=== PATIENT | male | born 1970 | race Caucasian/White ===

== ENCOUNTER 2016-12-29 05:23 | Inpatient (IN) | payer OTHER ==
[2016-12-29] VITALS (16 sets, daily range): BP systolic 89–146; BP diastolic 50–98
[~2016-12-29] VITALS: Ht 167.6 cm; Wt 64.2 kg
[2016-12-29 05:40] LABS: BASOPHIL COUNT 0.1 K/uL (0-0.1); EOSINOPHIL (%) 2.6 % (0-5); EOSINOPHIL COUNT 0.5 K/uL (0-0.3); HEMATOCRIT 44.1 % (38.0-50.0); IMMATURE GRANULOCYTE (%) 0.7 % (0.0-0.7); IMMATURE GRANULOCYTE COUNT 0.1 K/uL; INSTRUMENT ABS NEUTROPHIL CT 10.7 K/uL; LYMPHOCYTE COUNT 5.8 K/uL (1.0-2.8); MCV 91.1 FL (86-99); MEAN PLAT.VOLUME 9.2 uM^3 (9.0-12.4); MONOCYTE (%) 6.2 % (3-12); MONOCYTE COUNT 1.1 K/uL (0-0.8); NEUTROPHIL (%) 58.6 % (45-76); NEUTROPHIL COUNT 10.7 K/uL (1.8-6.4); PLATELET COUNT 279 K/uL (156-360); RBC DIS.WIDTH-CV 12.8 % (11.8-14.6); RBC DIS.WIDTH-SD 43.1 % (39-53); RED BLOOD COUNT 4.84 M/uL (4.00-5.50); WHITE BLOOD COUNT 18.2 K/uL (4.1-10.2)
[2016-12-29 05:43] LABS: PROTHROMBIN TIME 10.5 SEC (10.2-12.9)
[2016-12-29 05:45] LABS: AMYLASE 64 IU/L (1-118); CHLORIDE 110 mEq/L (99-109); POTASSIUM 3.6 mEq/L (3.7-5.4); SODIUM 143 mEq/L (136-147)
[2016-12-29 05:46] LABS: PTT 24.6 SEC (25-37)
[2016-12-29 05:47] LABS: GLUCOSE 139 mg/dL (70-99)
[2016-12-29 05:48] LABS: ANION GAP 13 MEQ/L (2-14)
[2016-12-29 05:50] LABS: SERUM ETHYL ALCOHOL < 10 mg/dL
[2016-12-29 05:51] LABS: GFR ESTIMATE (CALCULATED) > 59 mL/min/
[2016-12-29] MEDS ORDERED: HIV MEDICATION (05:51)
[2016-12-29 05:52] LABS: UREA NITROGEN (BUN) 13 mg/dL (9-23)
[2016-12-29 05:54] LABS: LIPASE 40 U/L (1.0-51.0)
[2016-12-29 05:58] LABS: TROP-I INTERPRETATION NEGATIVE; TROPONIN-I < 0.01 ng/mL (0.0-0.30)
[2016-12-29 08:37] LABS: METH RESISTANT S AUREUS PCR NEGATIVE (NEGATIVE)
[2016-12-29 08:40] LABS: PROBE CHECK PASS; SPECIMEN PROCESSING CONTROL PASS
[2016-12-29] MEDS ORDERED: ATRIPLA TABLET1 EACH PO (10:41)
[2016-12-29 13:11] LABS: HDL CHOLESTEROL 33 MG/DL (Desirable>=40); LDL CHOLESTEROL 52 mg/dL (Desirable<100); NON-HDL CHOLESTEROL 86 mg/dL (Desirable<160); TOTAL CHOLESTEROL 119 mg/dL (Desirable<200); TRIGLYCERIDES 170 MG/DL (Normal: <150)
[2016-12-29 13:31] LABS: TROP-I INTERPRETATION POSITIVE; TROPONIN-I 13.58 ng/mL (0.0-0.30)
[2016-12-29 14:26] LABS: CREATINE KINASE 419 IU/L (1-294); TOTAL CK 419 IU/L (1-294)
[2016-12-29 14:30] LABS: CK-MB 66.6 ng/mL (0.0-4.9)
[2016-12-29 18:32] LABS: CREATINE KINASE 444 IU/L (1-294); TOTAL CK 444 IU/L (1-294)
[2016-12-29 18:38] LABS: TROP-I INTERPRETATION POSITIVE
[2016-12-29 19:37] LABS: CK-MB 56.9 ng/mL (0.0-4.9)
[2016-12-30] VITALS (16 sets, daily range): BP systolic 115–143; BP diastolic 61–100
[2016-12-30 00:54] LABS: CREATINE KINASE 493 IU/L (1-294); TOTAL CK 493 IU/L (1-294)
[2016-12-30 00:58] LABS: TROP-I INTERPRETATION POSITIVE
[2016-12-30 01:01] LABS: TROPONIN-I 13.07 ng/mL (0.0-0.30)
[2016-12-30 01:12] LABS: CK-MB 45.6 ng/mL (0.0-4.9)
[2016-12-30 05:55] LABS: BASOPHIL COUNT 0.1 K/uL (0-0.1); EOSINOPHIL (%) 1.9 % (0-5); EOSINOPHIL COUNT 0.3 K/uL (0-0.3); HEMATOCRIT 41.4 % (38.0-50.0); IMMATURE GRANULOCYTE (%) 0.4 % (0.0-0.7); IMMATURE GRANULOCYTE COUNT 0.1 K/uL; INSTRUMENT ABS NEUTROPHIL CT 9.6 K/uL; LYMPHOCYTE COUNT 3.7 K/uL (1.0-2.8); MCH 31.4 PG (29.0-34.0); MCHC 34.1 G/DL (30.0-36.0); MCV 92.2 FL (86-99); MEAN PLAT.VOLUME 9.6 uM^3 (9.0-12.4); MONOCYTE (%) 8.4 % (3-12); MONOCYTE COUNT 1.3 K/uL (0-0.8); NEUTROPHIL (%) 64.5 % (45-76); NEUTROPHIL COUNT 9.6 K/uL (1.8-6.4); PLATELET COUNT 222 K/uL (156-360); RBC DIS.WIDTH-CV 13.2 % (11.8-14.6); RBC DIS.WIDTH-SD 44.3 % (39-53); RED BLOOD COUNT 4.49 M/uL (4.00-5.50)
[2016-12-30 06:15] LABS: ANION GAP 7 MEQ/L (2-14); CHLORIDE 108 MEQ/L (99-109); GFR ESTIMATE (CALCULATED) > 59 mL/min/; GLUCOSE 96 mg/dL (70-99); POTASSIUM 4.3 MEQ/L (3.7-5.4); SAMPLE HEMOLYSIS CHECK 0; SAMPLE ICTERIC CHECK 0; SAMPLE LIPEMIA CHECK 0; SODIUM 141 MEQ/L (136-147); UREA NITROGEN (BUN) 6 mg/dL (9-23)
[2016-12-30 06:39] LABS: TROP-I INTERPRETATION POSITIVE; TROPONIN-I 10.23 ng/mL (0.0-0.30)
[2016-12-30 06:53] LABS: Estimated Average Glucose 111 mg/dL (70-123); HEMOGLOBIN A1c (GLYCOHEMOGLOB) 5.5 % HGB (Below 5.7)
[2016-12-30] MEDS ORDERED: NICODERM CQ1 EAC1 TD (17:23)
[2016-12-30] MEDS ORDERED: ATORVASTATIN CA80 MG PO (17:23)
[2016-12-30] MEDS ORDERED: LISINOPRIL2.5 MG PO (17:23)
[2016-12-30] MEDS ORDERED: EFFIENT10 MG PO (17:23)
[2016-12-30] MEDS ORDERED: LOPRESSOR25 MG PO (17:23)
[2016-12-30] MEDS ORDERED: ASPIR-LOW81 MG PO (17:23)
[2016-12-30] MEDS ORDERED: NITROSTAT0.4 MG SL (17:23)
== END 2016-12-30 19:54 | disposition home or self-care (01) | DRG 246 ==
LOC: EME 05:23 → EDBD 05:23 → ENRESERV 05:30 → EME 05:36 → CATH 05:36 → ENRESERV 05:52 → 4WEST 06:47 → 2SOUTH 06:47 → 4WEST 07:01
PROVIDERS: Emergency Medicine; Internal Medicine Cardiovascular Disease
DX: I21.09 ST elevation (STEMI) myocardial infarction involving other coronary artery of anterior wall (principal); I25.10 Atherosclerotic heart disease of native coronary artery without angina pectoris; B20 Human immunodeficiency virus [HIV] disease; I95.89 Other hypotension; I10 Essential (primary) hypertension; F12.90 Cannabis use, unspecified, uncomplicated; F17.210 Nicotine dependence, cigarettes, uncomplicated
CPT/HCPCS: 80048; 80061; 81003; 82150; 82550; 82550 91; 82553; 83036; 83690; 84484; 85025; 85347; 85610; 85730; 86850; 86900; 86901; 87641; 93005; 93306; 94799; 99281; 99285; C1725; C1769; C1874; C1887; G0480; J0461; J1265; J1644; J2250; J2405; J3010; J7030

== ENCOUNTER 2017-03-05 17:19 | Observation (INO) | payer OTHER ==
[~2017-03-05] VITALS: Ht 167.6 cm; Wt 63.3 kg
[~2017-03-05 17:19] MED LIST: ASPIR-LOW81 MG PO; ATORVASTATIN CA80 MG PO; ATRIPLA TABLET1 EACH PO; EFFIENT10 MG PO; HIV MEDICATION; LISINOPRIL2.5 MG PO; LOPRESSOR25 MG PO; NICODERM CQ1 EAC1 TD; NITROSTAT0.4 MG SL
[2017-03-05 17:56] LABS: BASOPHIL COUNT 0.1 K/uL (0-0.1); EOSINOPHIL (%) 1.4 % (0-5); EOSINOPHIL COUNT 0.2 K/uL (0-0.3); HEMATOCRIT 47.8 % (38.0-50.0); IMMATURE GRANULOCYTE (%) 0.5 % (0.0-0.7); IMMATURE GRANULOCYTE COUNT 0.1 K/uL; INSTRUMENT ABS NEUTROPHIL CT 9.9 K/uL; LYMPHOCYTE COUNT 3.3 K/uL (1.0-2.8); MCH 30.6 PG (29.0-34.0); MCHC 34.1 G/DL (30.0-36.0); MCV 89.8 FL (86-99); MEAN PLAT.VOLUME 9.1 uM^3 (9.0-12.4); MONOCYTE (%) 7.8 % (3-12); MONOCYTE COUNT 1.2 K/uL (0-0.8); NEUTROPHIL (%) 67.2 % (45-76); NEUTROPHIL COUNT 9.9 K/uL (1.8-6.4); PLATELET COUNT 266 K/uL (156-360); RBC DIS.WIDTH-CV 13.2 % (11.8-14.6); RBC DIS.WIDTH-SD 43.5 % (39-53); RED BLOOD COUNT 5.32 M/uL (4.00-5.50); WHITE BLOOD COUNT 14.8 K/uL (4.1-10.2)
[2017-03-05 18:08] LABS: CHLORIDE 107 mEq/L (99-109); POTASSIUM 4.9 mEq/L (3.7-5.4); SODIUM 138 mEq/L (136-147)
[2017-03-05 18:10] LABS: GLUCOSE 83 mg/dL (70-99)
[2017-03-05 18:11] LABS: ANION GAP 10 MEQ/L (2-14)
[2017-03-05 18:14] LABS: GFR ESTIMATE (CALCULATED) > 59 mL/min/
[2017-03-05 18:15] LABS: UREA NITROGEN (BUN) 10 mg/dL (9-23)
[2017-03-05 18:27] LABS: TROP-I INTERPRETATION NEGATIVE; TROPONIN-I < 0.01 ng/mL (0.0-0.30)
[2017-03-05] MEDS ORDERED: ZESTRIL2.5 MG PO (20:15)
[2017-03-05] MEDS ORDERED: LO-DOSE ASPIRIN81 M1 PO (20:15)
[2017-03-05 22:36] VITALS: BP 127/81
[2017-03-06 00:58] LABS: TROP-I INTERPRETATION NEGATIVE; TROPONIN-I < 0.01 ng/mL (0.0-0.30)
[2017-03-06 04:11] VITALS: BP 106/63
[2017-03-06 05:51] LABS: TROP-I INTERPRETATION NEGATIVE; TROPONIN-I 0.01 ng/mL (0.0-0.30)
[2017-03-06 05:53] LABS: HDL CHOLESTEROL 31 MG/DL (Desirable>=40); LDL CHOLESTEROL 57 mg/dL (Desirable<100); NON-HDL CHOLESTEROL 99 mg/dL (Desirable<160); TOTAL CHOLESTEROL 130 mg/dL (Desirable<200); TRIGLYCERIDES 210 MG/DL (Normal: <150)
[2017-03-06] MEDS ORDERED: CLOPIDOGREL75 MG PO (06:07)
[2017-03-06 08:00] VITALS: BP 117/57
[2017-03-06 08:52] LABS: HEMATOCRIT 46.5 % (38.0-50.0); MCH 30.5 PG (29.0-34.0); MCHC 33.8 G/DL (30.0-36.0); MCV 90.5 FL (86-99); MEAN PLAT.VOLUME 9.4 uM^3 (9.0-12.4); PLATELET COUNT 274 K/uL (156-360); RBC DIS.WIDTH-CV 13.2 % (11.8-14.6); RBC DIS.WIDTH-SD 43.9 % (39-53); RED BLOOD COUNT 5.14 M/uL (4.00-5.50); WHITE BLOOD COUNT 17.1 K/uL (4.1-10.2)
[2017-03-06] MEDS ORDERED: LOPRESSOR25 MG PO (10:51)
[2017-03-06] MEDS ORDERED: PANTOPRAZOLE SO40 MG PO (10:51)
[2017-03-06 11:10] VITALS: BP 109/67
== END 2017-03-06 12:40 | disposition home or self-care (01) ==
LOC: EME 17:19 → EDOF 20:29 → 5WEST 20:29 → ENRESERV 20:45 → 5WEST 22:22
PROVIDERS: Emergency Medicine; Hospitalist; Physician Assistant Medical
DX: R07.9 Chest pain, unspecified (principal); B20 Human immunodeficiency virus [HIV] disease; Z92.25 Personal history of immunosuppression therapy; I25.10 Atherosclerotic heart disease of native coronary artery without angina pectoris; I25.2 Old myocardial infarction; Z79.82 Long term (current) use of aspirin; D72.829 Elevated white blood cell count, unspecified; E78.5 Hyperlipidemia, unspecified; R91.8 Other nonspecific abnormal finding of lung field; Z79.02 Long term (current) use of antithrombotics/antiplatelets; Z95.5 Presence of coronary angioplasty implant and graft; R11.0 Nausea; R06.02 Shortness of breath; R61 Generalized hyperhidrosis; R10.13 Epigastric pain; Z87.891 Personal history of nicotine dependence; I10 Essential (primary) hypertension; Z88.0 Allergy status to penicillin; Z82.49 Family history of ischemic heart disease and other diseases of the circulatory system
CPT/HCPCS: 71010; 71275; 80048; 80061; 84484; 85025; 85027; 93005; 99281; 99285; G0378; J1650